=== PATIENT | female | born 1965 | race Caucasian/White ===

== ENCOUNTER 2016-12-16 05:58 | Day surgery (SDC) | payer OTHER ==
[2016-12-12 17:28] VITALS: BMI 31.2
[2016-12-16] MEDS ORDERED: BUPIVACAINE HCL/PF 2.5 MG/ML - 30 ML VIAL IJ ONE (07:17)
[2016-12-16] MEDS ORDERED: MIDAZOLAM HCL 2 MG/2 ML SINGLE DOSE VIAL ONE (07:36)
[2016-12-16] MEDS ORDERED: LIDOCAINE HCL/PF 2% SDV 5ML VIAL ONE (07:36)
[2016-12-16] MEDS ORDERED: PROPOFOL 20 ML ONE ×2 (07:36)
[2016-12-16] MEDS ORDERED: ceFAZolin SODIUM 1 GM VIAL ONE (07:59)
[2016-12-16] MEDS ORDERED: ONDANSETRON 4 MG/2 ML VIAL ONE (07:59)
[2016-12-16] MEDS ORDERED: DEXAMETHASONE SOD PHOSPHATE 4 MG/1 ML VIAL ONE (07:59)
[2016-12-16] MEDS ORDERED: KETOROLAC TROMETHAMINE 30 MG/1 ML VIAL ONE (08:04)
[2016-12-16] MEDS ORDERED: BUPIVACAINE HCL 0.25% 125 MG/50 ML VIAL INF ONE (08:20)
[2016-12-16] MEDS ORDERED: LACTATED RINGERS SOLUTION 1,000 ML IV SCH (09:00)
[2016-12-16] MEDS ORDERED: ONDANSETRON 4 MG/2 ML VIAL IVPUSH PRN (09:26)
[2016-12-16] MEDS ORDERED: oxyCODONE HCL 5 MG TABLET PO PRN (09:26)
[2016-12-16 11:30] VITALS: TEMP 98.2
[2016-12-16 11:33] VITALS: BP 138/78; PULSE 62
--- NOTE | 2016-12-18 20:54 | OP ---
DATE OF OPERATION: 12/16/2016 SURGEON: Annetta Finney MD TIPPLE WORKER: RHETT Yi PREOPERATIVE DIAGNOSES: 1. Right knee medial and lateral meniscal tear. 2. Right knee cartilage injury. 3. Right knee synovitis. POSTOPERATIVE DIAGNOSES: 1. Right knee medial and lateral meniscal tear. 2. Right knee cartilage injury. 3. Right knee synovitis. PROCEDURE: 1. Right knee arthroscopy; partial meniscectomy, medial and lateral meniscus. 2. Right knee arthroscopy with chondroplasty. 3. Right knee arthroscopy with synovectomy (major). CPT CODES: 76342, 99215, 83335. FINDINGS: 1. Medial meniscus body and posterior horn tear. 2. Lateral meniscus posterior horn tear. 3. Synovitis, patellofemoral medial and lateral notch area. 4. Anterior grade 2, 3 cartilage injury, medial femoral condyle. 5. ACL and PCL intact. 6. Minor grade 1 cartilage injury, lateral tibial plateau. 7. Central grade 2 cartilage injury, patella, patellofemoral trochlea, with minor grade 4 changes, anterior patellofemoral trochlear. PROCEDURE: : Informed consent was obtained. The patient was taken to the operating room where the right lower extremity was prepped and draped in a sterile fashion. A tourniquet was placed on the right upper thigh but not inflated. Using standard arthroscopic technique, a lateral incision and portal were made which allowed for introduction of the camera into the suprapatellar bursa. This was then taken to the medial joint line where under direct visualization, a medial incision and portal were made. Excessive synovium noted in the medial, lateral, patellofemoral and notch area was removed by the up-biting shaver and Bovie cautery. This was found to bring inflammatory tissue into the joint surface, a source of joint pain and dysfunction. Probing of the medial and lateral meniscus found tears described in the findings. These were removed with an up-biting shaver and taken back to a stable rim. Grade 2-3 degenerative changes were treated with chondroplasty, removing all flaking surfaces with low setting Bovie used along the periphery. Grade 4 changes were treated with abrasion-plasty. All areas of the knee were once again re-examined. The knee was then drained. A single suture was placed on all portals. Sterile dressing was placed. The patient was transferred to the recovery room. ANNETTA FINNEY M.D. [id number]
--- NOTE | 2016-12-20 11:13 | PATH ---
Surgical Pathology Report Patient Name: SANG FENTON [facility]. Rec. #: [id number] /Age/Gender: 1965 (Age: 51) / F Account: [id number] Location: [facility] Taken: 12/16/2016 Received: 12/16/2016 Reported: 12/20/2016 Physicians: Sincere Rodney M.D. Specimen(s) Received RIGHT KNEE SHAVINGS Clinical History Right knee meniscal tear Final Diagnosis KNEE, RIGHT, ARTHROSCOPIC SHAVINGS: FIBROSYNOVIAL AND FIBROCARTILAGINOUS TISSUE. Electronically Signed Gladys Chatman M.D. Gross Description Received in formalin, labeled "right knee shavings," is a 3.5 x 3.2 x 0.4 cm. aggregate of castillo-yellow soft tissue fragments. A chain sales representative portion is submitted in one cassette. 12/16/201612/16/2016
== END 2016-12-16 11:00 | disposition home or self-care (01) ==
LOC: FASU 05:58
PROVIDERS: ATTEND Orthopaedic Surgery
PROC: 0SBC4ZZ Excision of Right Knee Joint, Percutaneous Endoscopic Approach (ICD-10-PCS; 2016-12-16)
PROC: 0SBC4ZZ Excision of Right Knee Joint, Percutaneous Endoscopic Approach (ICD-10-PCS; principal; 2016-12-16 07:30)
DX: S83.241A Other tear of medial meniscus, current injury, right knee, initial encounter (principal); S83.281A Other tear of lateral meniscus, current injury, right knee, initial encounter; M65.861 Other synovitis and tenosynovitis, right lower leg; X58.XXXA Exposure to other specified factors, initial encounter; Y93.9 Activity, unspecified; Y92.9 Unspecified place or not applicable
CPT/HCPCS: 88304-TC; 94760

== ENCOUNTER 2018-08-23 12:00 | Day surgery (SDC) | payer OTHER ==
[2018-08-10 11:44] VITALS: BMI 31.8
[2018-08-23] MEDS ORDERED: BUPIVACAINE HCL/PF 2.5 MG/ML - 30 ML VIAL IJ ONE (12:42)
[2018-08-23] MEDS ORDERED: EPINEPHrine 1:1,000 1 MG/1 ML - 30ML VIAL (INJECTION) ONE (12:42)
[2018-08-23] MEDS ORDERED: BUPIVACAINE HCL/PF 0.25% (2.5MG/ML) 10 ML VIAL IJ ONE (13:19)
[2018-08-23] MEDS ORDERED: KETOROLAC TROMETHAMINE 30 MG/1 ML VIAL ONE (13:45)
--- NOTE | 2018-08-23 13:46 | OP ---
Operative Note - Note: Operative Date: 08/23/18 Pre-Operative Diagnosis: L MMT Operation: left knee arthroscopy with partial medial meniscectomy Post-Operative Diagnosis: Same as Pre-op Surgeon: Ethan Vallejo Anesthesiologist/GRAIN HANDLER: Jolly Lantigua Anesthesia: General Operative Report Dictated: Yes
[2018-08-23] MEDS ORDERED: oxyCODONE HCL 5 MG TABLET PO PRN (13:48)
[2018-08-23] MEDS ORDERED: ONDANSETRON 4 MG/2 ML VIAL IVPUSH PRN (13:48)
[2018-08-23] MEDS ORDERED: KETOROLAC TROMETHAMINE 30 MG/1 ML VIAL IVPUSH ONE (13:49)
[2018-08-23] MEDS ORDERED: ONDANSETRON 4 MG/2 ML VIAL ONE (13:55)
[2018-08-23] MEDS ORDERED: LACTATED RINGERS SOLUTION 1,000 ML IV SCH (14:00)
--- NOTE | 2018-08-23 14:27 | OP ---
DATE OF OPERATION: 08/23/2018 PREOPERATIVE DIAGNOSIS: Left knee medial meniscal tear. POSTOPERATIVE DIAGNOSIS: Left knee medial meniscal tear. PROCEDURE: Left knee arthroscopy with partial medial meniscectomy. SURGEON: Ethan Queen MD ANESTHESIA: General. POSTOPERATIVE CONDITION: Stable. COMPLICATIONS: None. INDICATIONS: This is a pleasant 52-year-old female who has been having medial knee pain. MRI demonstrated medial meniscal tear. Treatment options including nonoperative versus operative measures were reviewed. Operative risks were reviewed in detail, including bleeding, infection, neurovascular injury, need for further surgery, postoperative pain and stiffness, osteoarthritis. We discussed medical risks such as heart attack, stroke, DVT, PE, and . I have reviewed the rehabilitation and recovery from surgery. Patient voiced understanding and elected to proceed. DESCRIPTION OF PROCEDURE: The patient was brought to the operating room where anesthesia was administered. The left lower extremity was then prepped and draped in the usual sterile fashion. A preoperative dose of antibiotics was given, and the usual timeout procedure was performed. The portals were now marked out on the skin. were injected subcutaneously with 0.25% Marcaine. A lateral portal was now established using an 11 blade. The arthroscope was passed into the knee. Examination of patellofemoral joint demonstrated some moderate partial thickness fraying of the articular surface of the patella. Slight fraying of the trochlea groove. The arthroscope was passed to the notch where ACL and PCL were visualized to be intact. The arthroscope was now passed into the medial compartment. Here, medial portal was established with spinal localization. The medial meniscus was seen to have a complex tear involving the posterior horn and body. Utilizing combination of meniscal biter and shaver, this was debrided down to a stable base. The arthroscope was passed into the lateral compartment. She was noted to have a tight lateral compartment. There was moderate partial thickness chondral loss on the tibial side. Slight chondral loss on the femoral side. There was some slight fraying of the anterior meniscus, however, no susan tear was seen. At this point, the excess fluid was withdrawn from the joint. The portals were sutured using 3-0 nylon. Sterile dressings were placed. The patient was extubated and transferred to the recovery room in stable condition. ETHAN QUEEN M.D. [id number]
[2018-08-23 15:29] VITALS: TEMP 97.9
[2018-08-23] MEDS ORDERED: ACETAMINOPHEN 325 MG TABLET (FP) PO ONE (16:39)
[2018-08-23 16:51] VITALS: PULSE 76
[2018-08-23 17:42] VITALS: BP 127/64
== END 2018-08-23 17:15 | disposition home or self-care (01) ==
LOC: FASU 12:00
PROVIDERS: ATTEND Orthopaedic Surgery Sports Medicine
PROC: 0SBD4ZZ Excision of Left Knee Joint, Percutaneous Endoscopic Approach (ICD-10-PCS; principal; 2018-08-23 13:18)
DX: S83.241A Other tear of medial meniscus, current injury, right knee, initial encounter (principal); X58.XXXA Exposure to other specified factors, initial encounter; Y93.9 Activity, unspecified; Y92.9 Unspecified place or not applicable
CPT/HCPCS: 94760